=== PATIENT | female | born 1955 | race Caucasian/White ===

== ENCOUNTER 2018-08-25 04:10 | Observation (INO) | payer OTHER ==
[2018-08-25] MEDS ORDERED: GLUCAGON 1 MG INJ IM (06:30)
[2018-08-25] MEDS ORDERED: GLUCOSE GEL 15 GRAM TUBE BUCCAL (06:30)
[2018-08-25] MEDS ORDERED: ALBUTEROL/IPRATROPIUM (NEB) 3 ML AMP HHN (06:30)
[2018-08-25] MEDS ORDERED: ONDANSETRON 4 MG INJ IV (06:30)
[2018-08-25] MEDS ORDERED: NACL 0.9% 3 ML SYG IV (06:30)
[2018-08-25] MEDS ORDERED: NITROGLYCERIN (SL) 0.4 MG TAB SL (06:30)
[2018-08-25] MEDS ORDERED: GLUCOSE GEL 15 GRAM TUBE PO ×2 (06:30)
[2018-08-25] MEDS ORDERED: ACETAMINOPHEN 325 MG TAB PO (06:30)
[2018-08-25] MEDS ORDERED: DEXTROSE 50% 50 ML SYRINGE IV ×2 (06:30)
[2018-08-25] MEDS ORDERED: HYDROCODONE/APAP (5/325) TAB PO ×2 (06:30)
[2018-08-25] MEDS: INSULIN ASPART [NOVOLOG] 3 ML PEN SC ×4 (08:00→20:55)
[2018-08-25 08:54] LABS: ADD MAN DIFF? NO
[2018-08-25 09:02] LABS: WHITE BLOOD COUNT 6.3 10^3/ul (4.8-10.8)
[2018-08-25 09:02] LABS: BASOPHILS % 0.3 % (0.0-2.0); EOSINOPHILS # 0.3 10^3/ul (0.0-0.5); EOSINOPHILS % 4.9 % (0.0-7.0); HEMATOCRIT 34.9 % (37.0-47.0); HEMOGLOBIN 10.7 g/dl (12.0-16.0); LYMPHOCYTES # 1.6 10^3/ul (0.8-2.9); LYMPHOCYTES % 25.7 % (15.0-51.0); MEAN CORPUSCULAR HEMOGLOBIN 25.1 pg (29.0-33.0); MEAN CORPUSCULAR HGB CONC 30.7 g/dl (32.0-37.0); MEAN CORPUSCULAR VOLUME 81.9 fl (82.0-101.0); MEAN PLATELET VOLUME 9.9 fl (7.4-10.4); MONOCYTE # 0.3 10^3/ul (0.3-0.9); MONOCYTES % 5.4 % (0.0-11.0); NEUTROPHILS % 63.4 % (39.0-77.0); PLATELET COUNT 313 10^3/UL (140-415); RED BLOOD COUNT 4.26 10^6/ul (4.20-5.40); RED CELL DISTRIBUTION WIDTH 16.6 % (11.5-14.5)
[2018-08-25] MEDS: FAMOTIDINE 20 MG INJ IV ×2 (09:07→20:55)
[2018-08-25] MEDS: metFORMIN 850 MG TAB PO (09:07)
[2018-08-25] MEDS: ASPIRIN (EC) 81 MG TAB PO (09:07)
[2018-08-25 09:11] LABS: HEMOGLOBIN A1C 10.6 % (0-5.9)
[2018-08-25 09:19] LABS: CREATINE KINASE 51 IU/L (23-200)
[2018-08-25 09:27] LABS: ALANINE AMINOTRANSFERASE 32 IU/L (13-69); ALBUMIN 3.8 g/dl (3.3-4.9); ALBUMIN/GLOBULIN RATIO 1.15; ALKALINE PHOSPHATASE 69 IU/L (42-121); ANION GAP 8 (5-13); ASPARTATE AMINO TRANSFERASE 27 IU/L (15-46); BILIRUBIN,INDIRECT 0.4 mg/dl (0-1.1); BILIRUBIN,TOTAL 0.4 mg/dl (0.2-1.3); BLOOD UREA NITROGEN 5 mg/dl (7-20); CALCIUM 9.3 mg/dl (8.4-10.2); CARBON DIOXIDE 26 mmol/L (21-31); CHLORIDE 107 mmol/L (97-110); CHOL/HDL RATIO 4.3 RATIO; CHOLESTEROL 160 mg/dl (100-200); CREATININE 0.46 mg/dl (0.44-1.00); Estimated GFR > 60 mL/min (>60); GLUCOSE 136 mg/dl (70-220); HDL CHOLESTEROL 37 mg/dl (35-98); LDL CHOLESTEROL,CALCULATED 97 mg/dl; MAGNESIUM 1.7 mg/dl (1.7-2.5); POTASSIUM 4.9 mmol/L (3.5-5.1); SODIUM 141 mmol/L (135-144); TOTAL PROTEIN 7.1 g/dl (6.1-8.1); TRIGLYCERIDES 129 mg/dl (0-149)
[2018-08-25 09:31] LABS: CK INDEX 1.1; CK-MB 0.57 ng/ml (0.0-2.4); TROPONIN-I < 0.012 ng/ml (0.000-0.120)
[2018-08-25] MEDS ORDERED: [UNRECOGNIZED DRUG - REMARK] XX (10:00)
[2018-08-25] MEDS ORDERED: HEPARIN 5,000 UNIT/0.5 ML VIAL ×2 (12:09→20:39)
[2018-08-25] MEDS: ONDANSETRON 4 MG INJ IV ×2 (12:11→23:43)
[2018-08-25] MEDS: IBUPROFEN 600 MG TAB PO (12:13)
[2018-08-25] MEDS: HEPARIN SODIUM 5,000 UNIT/ML VIAL SC ×2 (12:15→21:07)
[2018-08-25 13:01] LABS: CREATINE KINASE 49 IU/L (23-200)
[2018-08-25 13:15] LABS: CK INDEX 0.9; CK-MB 0.44 ng/ml (0.0-2.4); TROPONIN-I < 0.012 ng/ml (0.000-0.120)
[2018-08-25] MEDS: ATORVASTATIN 20 MG TAB PO (20:55)
[2018-08-25] MEDS: FLUOXETINE 20 MG CAP PO (20:55)
[2018-08-25] MEDS ORDERED: clonAZEPAM 0.5 MG TAB PO (21:00)
[2018-08-26] MEDS: ACCU-CHEK XX (02:00)
[2018-08-26 05:42] LABS: ADD MAN DIFF? NO
[2018-08-26 05:52] LABS: BASOPHILS % 0.6 % (0.0-2.0); EOSINOPHILS # 0.6 10^3/ul (0.0-0.5); EOSINOPHILS % 9.2 % (0.0-7.0); HEMATOCRIT 34.6 % (37.0-47.0); HEMOGLOBIN 10.8 g/dl (12.0-16.0); LYMPHOCYTES # 2.1 10^3/ul (0.8-2.9); LYMPHOCYTES % 30.8 % (15.0-51.0); MEAN CORPUSCULAR HEMOGLOBIN 25.3 pg (29.0-33.0); MEAN CORPUSCULAR HGB CONC 31.2 g/dl (32.0-37.0); MEAN PLATELET VOLUME 10.1 fl (7.4-10.4); MONOCYTE # 0.5 10^3/ul (0.3-0.9); NEUTROPHIL # 3.5 10^3/ul (1.6-7.5); NEUTROPHILS % 52.1 % (39.0-77.0); PLATELET COUNT 327 10^3/UL (140-415); RED BLOOD COUNT 4.27 10^6/ul (4.20-5.40); RED CELL DISTRIBUTION WIDTH 16.4 % (11.5-14.5)
[2018-08-26 05:52] LABS: WHITE BLOOD COUNT 6.7 10^3/ul (4.8-10.8)
[2018-08-26 06:08] LABS: LIPASE 81 U/L (23-300)
[2018-08-26 06:25] LABS: ANION GAP 9 (5-13); BLOOD UREA NITROGEN 8 mg/dl (7-20); CALCIUM 9.2 mg/dl (8.4-10.2); CARBON DIOXIDE 27 mmol/L (21-31); CHLORIDE 104 mmol/L (97-110); CREATININE 0.54 mg/dl (0.44-1.00); Estimated GFR > 60 mL/min (>60); GLUCOSE 140 mg/dl (70-220); MAGNESIUM 1.6 mg/dl (1.7-2.5); PHOSPHORUS 4.6 mg/dl (2.5-4.9); POTASSIUM 4.1 mmol/L (3.5-5.1); SODIUM 140 mmol/L (135-144)
[2018-08-26 07:31] LABS: ALANINE AMINOTRANSFERASE 31 IU/L (13-69); ALBUMIN 3.8 g/dl (3.3-4.9); ALKALINE PHOSPHATASE 70 IU/L (42-121); ASPARTATE AMINO TRANSFERASE 28 IU/L (15-46); BILIRUBIN,INDIRECT 0.3 mg/dl (0-1.1); BILIRUBIN,TOTAL 0.3 mg/dl (0.2-1.3); TOTAL PROTEIN 6.8 g/dl (6.1-8.1)
[2018-08-26] MEDS ORDERED: HEPARIN 5,000 UNIT/0.5 ML VIAL (07:44)
[2018-08-26] MEDS: ONDANSETRON 4 MG INJ IV (08:00)
[2018-08-26] MEDS: metFORMIN 850 MG TAB PO (08:00)
[2018-08-26] MEDS: FAMOTIDINE 20 MG INJ IV (08:00)
[2018-08-26] MEDS: INSULIN ASPART [NOVOLOG] 3 ML PEN SC ×2 (08:04→12:16)
[2018-08-26] MEDS: ASPIRIN (EC) 81 MG TAB PO (08:05)
[2018-08-26] MEDS: HEPARIN SODIUM 5,000 UNIT/ML VIAL SC (08:05)
== END 2018-08-26 15:08 | disposition home or self-care (01) ==
LOC: 6WM 04:10
DX: R51 Headache (principal); R53.1 Weakness; R61 Generalized hyperhidrosis; R20.2 Paresthesia of skin; R07.89 Other chest pain; E11.9 Type 2 diabetes mellitus without complications; I10 Essential (primary) hypertension; R62.7 Adult failure to thrive; F32.9 Major depressive disorder, single episode, unspecified; Z86.73 Personal history of transient ischemic attack (TIA), and cerebral infarction without residual deficits
CPT/HCPCS: 70551; 80048; 80053; 80061; 80076; 82247; 82248; 82550; 82553; 82962; 83036; 83690; 83735; 84100; 84443; 84484; 85025; 93306; 93880; G0378

== ENCOUNTER 2019-07-10 17:01 | Inpatient (IN) | payer OTHER ==
[2019-07-10 17:24] LABS: ADD MAN DIFF? NO
[2019-07-10 17:29] LABS: BASOPHILS % 0.4 % (0.0-2.0); EOSINOPHILS # 0.6 10^3/ul (0.0-0.5); EOSINOPHILS % 8.6 % (0.0-7.0); HEMATOCRIT 33.8 % (37.0-47.0); HEMOGLOBIN 10.4 g/dl (12.0-16.0); LYMPHOCYTES # 1.8 10^3/ul (0.8-2.9); LYMPHOCYTES % 24.7 % (15.0-51.0); MEAN CORPUSCULAR HEMOGLOBIN 24.9 pg (29.0-33.0); MEAN CORPUSCULAR HGB CONC 30.8 g/dl (32.0-37.0); MEAN CORPUSCULAR VOLUME 81.1 fl (82.0-101.0); MEAN PLATELET VOLUME 9.4 fl (7.4-10.4); MONOCYTE # 0.6 10^3/ul (0.3-0.9); MONOCYTES % 7.6 % (0.0-11.0); NEUTROPHIL # 4.2 10^3/ul (1.6-7.5); NEUTROPHILS % 58.4 % (39.0-77.0); PLATELET COUNT 326 10^3/UL (140-415); RED BLOOD COUNT 4.17 10^6/ul (4.20-5.40); RED CELL DISTRIBUTION WIDTH 15.9 % (11.5-14.5)
[2019-07-10 17:29] LABS: WHITE BLOOD COUNT 7.3 10^3/ul (4.8-10.8)
[2019-07-10 17:37] LABS: HEMOGLOBIN A1C 7.3 % (0-5.9)
[2019-07-10 17:49] LABS: INR 0.89; PARTIAL THROMBOPLASTIN TIME 25.8 Sec (23.0-35.0); PROTIME 12.2 Sec (11.9-14.9)
[2019-07-10 17:54] LABS: ANION GAP 7 (5-13); BLOOD UREA NITROGEN 11 mg/dl (7-20); CALCIUM 9.2 mg/dl (8.4-10.2); CARBON DIOXIDE 28 mmol/L (21-31); CHLORIDE 102 mmol/L (97-110); CHOL/HDL RATIO 4.5 RATIO; CHOLESTEROL 147 mg/dl (100-200); CREATINE KINASE 67 IU/L (23-200); CREATININE 0.56 mg/dl (0.44-1.00); Estimated GFR > 60 mL/min (>60); GLUCOSE 125 mg/dl (70-220); HDL CHOLESTEROL 32 mg/dl (35-98); LDL CHOLESTEROL,CALCULATED 81 mg/dl; POTASSIUM 4.2 mmol/L (3.5-5.1); SODIUM 137 mmol/L (135-144); TRIGLYCERIDES 169 mg/dl (0-149)
[2019-07-10 17:57] LABS: ETHANOL < 10.0 mg/dl (0-0)
[2019-07-10] MEDS ORDERED: LEVETIRACETAM 1000 MG (PMX) 100 ML IVPB (18:00)
[2019-07-10 18:05] LABS: CK INDEX 0.6; TROPONIN-I < 0.012 ng/ml (0.000-0.120)
[2019-07-10] MEDS: LEVETIRACETAM IV 1,000 MG in SOD CHLORIDE 0.9% 100 ML IV (18:14)
[2019-07-10] MEDS ORDERED: LEVETIRACETAM IV 1,000 MG in SOD CHLORIDE 0.9% 100 ML IV (18:30)
[2019-07-10] MEDS ORDERED: ACETAMINOPHEN 325 MG TAB PO (19:00)
[2019-07-10] MEDS ORDERED: ONDANSETRON 4 MG INJ IV ×2 (19:00→21:00)
[2019-07-10 19:58] LABS: ADD UMIC NO; UR ASCORBIC ACID NEGATIVE (NEGATIVE); UR BILIRUBIN (Dip) NEGATIVE (NEGATIVE); UR BLOOD (Dip) NEGATIVE (NEGATIVE); UR CLARITY SLIGHTLY CLOUDY (CLEAR); UR COLOR STRAW (YELLOW); UR GLUCOSE (Dip) NEGATIVE (NEGATIVE); UR KETONES (Dip) NEGATIVE (NEGATIVE); UR LEUKOCYTE ESTERASE (Dip) NEGATIVE Leu/ul (NEGATIVE); UR NITRITE (Dip) NEGATIVE (NEGATIVE); UR RBC 2 /HPF (0-5); UR SPECIFIC GRAVITY (Dip) 1.011 (1.003-1.030); UR SQUAMOUS EPITHELIAL CELL FEW /HPF (FEW); UR TOTAL PROTEIN (Dip) NEGATIVE (NEGATIVE); UR UROBILINOGEN (Dip) NEGATIVE (NEGATIVE); UR WBC 2 /HPF (0-5)
[2019-07-10 20:15] LABS: AMPHETAMINE/METHAMPHETAMINE Negative (NEGATIVE); BARBITURATES Negative (NEGATIVE); BENZODIAZEPINES Negative (NEGATIVE); CANNABINOIDS Negative (NEGATIVE); COCAINE Negative (NEGATIVE); OPIATES Negative (NEGATIVE)
[2019-07-10] MEDS ORDERED: ALBUTEROL/IPRATROPIUM (NEB) 3 ML AMP HHN (21:00)
[2019-07-10] MEDS ORDERED: NACL 0.9% 3 ML SYG IV (21:00)
[2019-07-10] MEDS ORDERED: DEXTROSE 50% 50 ML SYRINGE IV ×2 (21:30)
[2019-07-10] MEDS ORDERED: GLUCOSE GEL 15 GRAM TUBE BUCCAL (21:30)
[2019-07-10] MEDS ORDERED: GLUCAGON 1 MG INJ IM (21:30)
[2019-07-10] MEDS ORDERED: GLUCOSE GEL 15 GRAM TUBE PO ×2 (21:30)
[2019-07-10] MEDS: ATORVASTATIN 40 MG TAB PO (21:52)
[2019-07-10] MEDS: HEPARIN 5,000 UNIT/1 ML VIAL SC (22:01)
[2019-07-10] MEDS: INSULIN GLARGINE [LANTus] (100 UNITS/ML) SYG SC (23:00)
[2019-07-11] MEDS: ACCU-CHEK XX (02:00)
[2019-07-11] MEDS: hydrALAzine 20 MG INJ IV (05:07)
[2019-07-11] MEDS: ACETAMINOPHEN 325 MG TAB PO ×2 (07:31→17:00)
[2019-07-11] MEDS: INSULIN ASPART [NOVOLOG] 3 ML PEN SC ×5 (07:33→21:00)
[2019-07-11] MEDS ORDERED: NON-FORMULARY/PATIENT OWN MED (Insulin Lispro (Humalog Kwikpen U-100) 10 UNIT) SQ (07:55)
[2019-07-11] MEDS: ASPIRIN 81 MG TAB PO (08:19)
[2019-07-11] MEDS: HEPARIN 5,000 UNIT/1 ML VIAL SC ×2 (08:26→21:22)
[2019-07-11 08:28] LABS: ADD MAN DIFF? NO
[2019-07-11 08:44] LABS: BASOPHILS % 0.6 % (0.0-2.0); EOSINOPHILS # 0.6 10^3/ul (0.0-0.5); EOSINOPHILS % 8.4 % (0.0-7.0); HEMOGLOBIN 10.7 g/dl (12.0-16.0); LYMPHOCYTES # 1.8 10^3/ul (0.8-2.9); LYMPHOCYTES % 26.9 % (15.0-51.0); MEAN CORPUSCULAR HEMOGLOBIN 25.1 pg (29.0-33.0); MEAN CORPUSCULAR HGB CONC 31.5 g/dl (32.0-37.0); MEAN CORPUSCULAR VOLUME 79.8 fl (82.0-101.0); MONOCYTE # 0.4 10^3/ul (0.3-0.9); MONOCYTES % 6.2 % (0.0-11.0); NEUTROPHIL # 3.9 10^3/ul (1.6-7.5); NEUTROPHILS % 57.6 % (39.0-77.0); PLATELET COUNT 344 10^3/UL (140-415); RED BLOOD COUNT 4.26 10^6/ul (4.20-5.40)
[2019-07-11 08:44] LABS: WHITE BLOOD COUNT 6.8 10^3/ul (4.8-10.8)
[2019-07-11 09:04] LABS: HEMOGLOBIN A1C 7.4 % (0-5.9)
[2019-07-11 09:04] LABS: ALANINE AMINOTRANSFERASE 40 IU/L (13-69); ALBUMIN 4.1 g/dl (3.3-4.9); ALBUMIN/GLOBULIN RATIO 1.24; ALKALINE PHOSPHATASE 67 IU/L (42-121); ANION GAP 8 (5-13); ASPARTATE AMINO TRANSFERASE 34 IU/L (15-46); BILIRUBIN,INDIRECT 0.4 mg/dl (0-1.1); BILIRUBIN,TOTAL 0.4 mg/dl (0.2-1.3); BLOOD UREA NITROGEN 9 mg/dl (7-20); CALCIUM 9.4 mg/dl (8.4-10.2); CARBON DIOXIDE 28 mmol/L (21-31); CHLORIDE 104 mmol/L (97-110); CHOL/HDL RATIO 4.6 RATIO; CHOLESTEROL 150 mg/dl (100-200); CREATININE 0.45 mg/dl (0.44-1.00); Estimated GFR > 60 mL/min (>60); GLUCOSE 89 mg/dl (70-220); HDL CHOLESTEROL 32 mg/dl (35-98); LDL CHOLESTEROL,CALCULATED 92 mg/dl; MAGNESIUM 1.7 mg/dl (1.7-2.5); POTASSIUM 3.8 mmol/L (3.5-5.1); SODIUM 140 mmol/L (135-144); TOTAL PROTEIN 7.4 g/dl (6.1-8.1); TRIGLYCERIDES 130 mg/dl (0-149)
[2019-07-11] MEDS: AMOXICILLIN 500 MG CAP PO ×2 (14:20→17:00)
[2019-07-11] MEDS: LISINOPRIL 5 MG TAB PO (14:20)
[2019-07-11] MEDS: ATORVASTATIN 40 MG TAB PO (21:17)
[2019-07-11] MEDS: INSULIN GLARGINE [LANTus] (100 UNITS/ML) SYG SC (21:23)
[2019-07-12] MEDS: ACETAMINOPHEN 325 MG TAB PO
[2019-07-12] MEDS: ACCU-CHEK XX (02:00)
[2019-07-12] MEDS: AMOXICILLIN 500 MG CAP PO ×4 (05:56→17:31)
[2019-07-12 06:50] LABS: ADD MAN DIFF? NO
[2019-07-12 06:54] LABS: WHITE BLOOD COUNT 6.2 10^3/ul (4.8-10.8)
[2019-07-12 06:54] LABS: BASOPHILS % 0.5 % (0.0-2.0); EOSINOPHILS # 0.7 10^3/ul (0.0-0.5); EOSINOPHILS % 11.3 % (0.0-7.0); HEMATOCRIT 34.5 % (37.0-47.0); HEMOGLOBIN 10.6 g/dl (12.0-16.0); LYMPHOCYTES # 1.9 10^3/ul (0.8-2.9); LYMPHOCYTES % 30.2 % (15.0-51.0); MEAN CORPUSCULAR HEMOGLOBIN 24.7 pg (29.0-33.0); MEAN CORPUSCULAR HGB CONC 30.7 g/dl (32.0-37.0); MEAN CORPUSCULAR VOLUME 80.2 fl (82.0-101.0); MEAN PLATELET VOLUME 9.4 fl (7.4-10.4); MONOCYTE # 0.5 10^3/ul (0.3-0.9); MONOCYTES % 7.3 % (0.0-11.0); NEUTROPHIL # 3.1 10^3/ul (1.6-7.5); NEUTROPHILS % 50.4 % (39.0-77.0); PLATELET COUNT 320 10^3/UL (140-415); RED CELL DISTRIBUTION WIDTH 16.3 % (11.5-14.5)
[2019-07-12 07:21] LABS: ANION GAP 7 (5-13); BLOOD UREA NITROGEN 10 mg/dl (7-20); CALCIUM 9.2 mg/dl (8.4-10.2); CARBON DIOXIDE 30 mmol/L (21-31); CHLORIDE 103 mmol/L (97-110); CREATININE 0.56 mg/dl (0.44-1.00); Estimated GFR > 60 mL/min (>60); GLUCOSE 128 mg/dl (70-220); POTASSIUM 4.1 mmol/L (3.5-5.1); SODIUM 140 mmol/L (135-144)
[2019-07-12] MEDS: INSULIN ASPART [NOVOLOG] 3 ML PEN SC ×4 (07:55→21:00)
[2019-07-12] MEDS: ASPIRIN 81 MG TAB PO (08:18)
[2019-07-12] MEDS: LISINOPRIL 5 MG TAB PO (08:19)
[2019-07-12] MEDS: HEPARIN 5,000 UNIT/1 ML VIAL SC ×2 (08:22→20:45)
[2019-07-12] MEDS: ATORVASTATIN 40 MG TAB PO (20:41)
[2019-07-12] MEDS: INSULIN GLARGINE [LANTus] (100 UNITS/ML) SYG SC (20:45)
[2019-07-13] MEDS: AMOXICILLIN 500 MG CAP PO ×3 (00:57→12:28)
[2019-07-13] MEDS: ACCU-CHEK XX (02:00)
[2019-07-13] MEDS: ACETAMINOPHEN 325 MG TAB PO (04:05)
[2019-07-13] MEDS: INSULIN ASPART [NOVOLOG] 3 ML PEN SC ×2 (08:07→11:35)
[2019-07-13] MEDS: LISINOPRIL 5 MG TAB PO (09:04)
[2019-07-13] MEDS: ASPIRIN 81 MG TAB PO (09:04)
[2019-07-13] MEDS: HEPARIN 5,000 UNIT/1 ML VIAL SC (09:11)
== END 2019-07-13 14:15 | disposition home or self-care (01) | DRG 948 ==
LOC: E/R 17:01 → TEL 18:54
DX: R41.82 Altered mental status, unspecified (principal); G93.49 Other encephalopathy; D32.9 Benign neoplasm of meninges, unspecified; I10 Essential (primary) hypertension; E78.5 Hyperlipidemia, unspecified; E11.9 Type 2 diabetes mellitus without complications; Z79.4 Long term (current) use of insulin; K08.409 Partial loss of teeth, unspecified cause, unspecified class
CPT/HCPCS: 36415; 70450; 70551; 71045; 80048; 80053; 80061; 80307; 81001; 81003; 82550; 82553; 82962; 83036; 83735; 84100; 84443; 84484; 85025; 85610; 85730; 92610; 93005; 95819; 96374; 97110; 97116; 97162; 99285-25